=== PATIENT | female | born 1965 | race Caucasian/White ===

== ENCOUNTER → 2018-05-19 08:57 | Outpatient (CLI) | payer OTHER, SELFPAY ==
--- NOTE | 2018-05-19 09:00 | NS.NUTBLAN_ITS ---
Kerry returns for follow up weight management nutrition therapy. She reports she has been on vacation and she states she is proud of herself for having enjoyed her food but not eaten excessively on vacation. She also reports that she walked many miles each day on vacation. Acknowledged Kerry's excellent progress with making eating healthfully a lifetime commitment. Today she is 172.4 lbs which is entirely stable from a month ago. Kerry also notes that her clothes are fitting more loosely so she has likely lost some inches in her waist as well. Kerry will return for follow up in three weeks.
== END ==
PROVIDERS: PCP Family Medicine; Visit Provider Dietitian, Registered
DX: E66.3 Overweight (principal); Z71.3 Dietary counseling and surveillance
CPT/HCPCS: 97803

== ENCOUNTER → 2018-05-30 00:57 | Outpatient (CLI) | payer OTHER, SELFPAY ==
--- NOTE | 2018-05-30 08:40 | DI.REPORT_ITS ---
SYMPTOM/DIAGNOSIS: SCREENING, PREVENTIVE HEALTH CARE Z00.00 BILATERAL SCREENING MAMMOGRAM: Mammograms were interpreted according to the usual protocol including computer analysis with CAD system, tomosynthesis and C view imaging. The breasts are composed of scattered fibroglandular densities. Comparison is made with exams from 2009 through 2017. No suspicious masses or suspicious microcalcifications. There has been no significant change. IMPRESSION: Category 1-B, negative mammogram. Routine screening is recommended. [facility] ASSESSMENT OF FINDINGS: Negative. Category 1. Patient will receive a letter notifying them of these results. BI-RADS category B. There are scattered areas of fibroglandular density.
== END ==
PROVIDERS: PCP Family Medicine; Visit Provider Family Medicine
DX: Z12.31 Encounter for screening mammogram for malignant neoplasm of breast (principal)
CPT/HCPCS: 77063; 77067

== ENCOUNTER → 2018-06-07 03:32 | Outpatient (CLI) | payer OTHER, SELFPAY ==
[2018-06-07 09:46] LABS: Glucose 98 mg/dL (70-100)
[2018-06-08 11:30] LABS: Hepatitis C Ab w Rflx HCV PCR Negative (NEGAT)
== END ==
PROVIDERS: PCP Family Medicine; Visit Provider Family Medicine
DX: Z00.00 Encounter for general adult medical examination without abnormal findings (principal); R73.01 Impaired fasting glucose; G40.209 Localization-related (focal) (partial) symptomatic epilepsy and epileptic syndromes with complex partial seizures, not intractable, without status epilepticus; Z11.59 Encounter for screening for other viral diseases
CPT/HCPCS: 36415; 82947; 86803; 87522

== ENCOUNTER → 2018-06-09 09:03 | Outpatient (CLI) | payer OTHER, SELFPAY ==
--- NOTE | 2018-06-09 09:00 | NS.NUTBLAN_ITS ---
Kerry returns for follow up for nutritional counseling for weight management nutrition therapy. She continues to keep her portions small and she is physically active. She shows me that she has the [facility] Wellness Calendar and that she would like to sign up for aquatic boot camp to further her physical fitness and weight loss. Encouraged her to keep up with exactly what she has been doing and to add on the increased physical activity as she has planned. Her weight is down to 170.4 lbs which is an 11 lb decrease since February of this year. Kerry will return for follow up next month to evaluate her nutrition care plan and we will make any adjustments needed. Appointment start time: End time:
== END ==
PROVIDERS: PCP Family Medicine; Visit Provider Dietitian, Registered
DX: E66.3 Overweight (principal); Z71.3 Dietary counseling and surveillance
CPT/HCPCS: 97803

== ENCOUNTER → 2018-10-27 09:39 | Outpatient (BNVA) | payer OTHER, SELFPAY | PROVIDERS: PCP Nurse Practitioner Family; Visit Provider Psychiatry & Neurology Neurology | DX: G40.209 Localization-related (focal) (partial) symptomatic epilepsy and epileptic syndromes with complex partial seizures, not intractable, without status epilepticus (principal); G43.009 Migraine without aura, not intractable, without status migrainosus | CPT/HCPCS: 99213 ==

== ENCOUNTER 2019-02-20 01:10 | Outpatient (CLI) | payer OTHER, SELFPAY ==
[2019-02-20 07:52] LABS: Hemoglobin A1C 4.5 % (4.5-6.2)
[2019-02-20 08:47] LABS: Anion Gap 10.1 mmol/L (3-11); BUN 16 mg/dL (7-18); CO2 26.9 mmol/L (21.0-32.0); CREATININE 0.92 mg/dL (0.55-1.02); Calcium 9.3 mg/dL (8.5-10.1); Chloride 104 mmol/L (98-107); Cholesterol 215 mg/dL (50-200); Glucose 110 mg/dL (70-100); HDL Cholesterol 53 mg/dL (40-60); LDL CHOLESTEROL 141 mg/dL (<100); Sodium 141 mmol/L (136-145); Triglyceride 99 mg/dL (30-150)
== END 2019-02-20 01:30 ==
PROVIDERS: PCP Nurse Practitioner Family; Visit Provider Nurse Practitioner Family
DX: E78.5 Hyperlipidemia, unspecified (principal); R73.01 Impaired fasting glucose
CPT/HCPCS: 36415; 80048; 80061; 83721; 83036

== ENCOUNTER 2019-03-02 14:00 | Outpatient (REF) | payer OTHER, SELFPAY ==
--- NOTE | 2019-03-02 14:00 | PAPFT_PTH ---
PATIENT: Kerry Hubbard LOC: [facility] U#:[id number] AGE/SX: 53/F ROOM: RE03/02/[address]: Umu Telles APRN : 1965 BED: DIS: 03/02/2019 SPEC #: [id number] RECD: 03/03/19 12:55 STATUS: VENITA REaHi #: [id number] ENRIQUE: 03/02/19 14:[address]: Umu Telles DEPT: [facility] Cytology RECD BY: Sofia Cabrera Tissues: 1 - CX/ENDOCX FOR PAP SMEARS Procedures: PAP THIN PREP/UVM Screening HPV DNA PROBE Comments: [id number]
== END 2019-03-02 14:20 ==
LOC: LBN 14:00
PROVIDERS: PCP Nurse Practitioner Family; Visit Provider Nurse Practitioner Family
DX: Z12.4 Encounter for screening for malignant neoplasm of cervix (principal); Z11.51 Encounter for screening for human papillomavirus (HPV)
CPT/HCPCS: 88142; 87624

== ENCOUNTER → 2020-01-17 08:45 | Outpatient (BNVA) | payer OTHER, SELFPAY | PROVIDERS: PCP Nurse Practitioner Family; Referring Provider Nurse Practitioner Family; Visit Provider Psychiatry & Neurology Neurology | DX: G40.209 Localization-related (focal) (partial) symptomatic epilepsy and epileptic syndromes with complex partial seizures, not intractable, without status epilepticus (principal); G43.009 Migraine without aura, not intractable, without status migrainosus | CPT/HCPCS: 99213; 99441 ==

== ENCOUNTER 2020-04-01 01:25 | Outpatient (CLI) | payer OTHER, SELFPAY ==
[2020-04-01 09:04] LABS: Anion Gap 9.9 mmol/L (3-11); BUN 17 mg/dL (7-18); CO2 26.1 mmol/L (21.0-32.0); CREATININE 0.85 mg/dL (0.55-1.02); Calcium 9.1 mg/dL (8.5-10.1); Chloride 105 mmol/L (98-107); Glucose 105 mg/dL (74-106); Potassium 4.3 mmol/L (3.5-5.1); Sodium 141 mmol/L (136-145)
[2020-04-03 10:14] LABS: HIV-1/2 Ag & Ab Screen Negative (Negative)
== END 2020-04-01 01:45 ==
PROVIDERS: PCP Nurse Practitioner Family; Visit Provider Nurse Practitioner Family
DX: E78.5 Hyperlipidemia, unspecified (principal); R73.01 Impaired fasting glucose; Z11.4 Encounter for screening for human immunodeficiency virus [HIV]; Z51.81 Encounter for therapeutic drug level monitoring
CPT/HCPCS: 36415; 80048; 87389

== ENCOUNTER 2020-05-13 01:17 | Outpatient (CLI) | payer OTHER, SELFPAY ==
--- NOTE | 2020-05-13 07:45 | DI.MAMMO_ITS ---
EXAM: MG MAMMO SCREENING CLINICAL HISTORY: screening,Z12.39 TECHNIQUE: Mammograms were interpreted according to the usual protocol including computer analysis w [employer] CAD system, tomosynthesis and C-view imaging. COMPARISON: FINDINGS: The breasts are of moderate density with fairly symmetrical distribution of fibroglandular tissue. N o dominant mass or clumped microcalcification is identified in either breast. The current examinatio n is compared with previous examinations including May 2018 and there has been no gross interval c hange in appearance in comparison with the prior studies. IMPRESSION: No specific evidence of malignancy at this time. Routine screening examinations are suggested at yea rly intervals in this age group according to the ACS ACR guidelines. BI-RADS Cat 1 - Negative Breast Density - Category B - Scattered areas of fibroglandular density
== END 2020-05-13 01:37 ==
PROVIDERS: PCP Nurse Practitioner Family; Visit Provider Nurse Practitioner Family
DX: Z12.31 Encounter for screening mammogram for malignant neoplasm of breast (principal); R92.2 Inconclusive mammogram
CPT/HCPCS: 77063; 77067

== ENCOUNTER 2021-08-28 07:29 | Emergency (ER) | payer MEDICARE, SELFPAY ==
[2021-08-28 07:37] VITALS: BP 123/82; PULSE 92; RESP 18; TEMP 36.8; O2SAT 100
[2021-08-28] MEDS: diphenhydrAMINE 25 MG CAP 50 MG PO (08:05)
--- NOTE | 2021-08-28 08:21 | ED.GENADUL_ITS ---
Discharge Plan Disposition Patient Disposition: HOME Condition: Stable Discharge Details Clinical Impression: Amoxicillin-induced allergic rash Primary Care Provider: Umu Telles ED Provider: Quentin Melchor Home Meds and New Rx's Prescriptions: New diphenhydramine HCl [Benadryl Allergy] 25 mg tablet 50 mg PO TID PRN (Reason: allergic reaction) 4 Days RF: 0 prednisone 20 mg tablet 40 mg PO DAILY Qty: 10 RF: 0 Continued multivitamin tablet 1 tab PO DAILY RF: 0 acetaminophen [Tylenol Extra Strength] 500 MG tablet 500 mg PO PRN RF: 0 topiramate [Topamax] 50 mg tablet 50 mg PO BID Qty: 180 RF: 3 Discontinued amoxicillin-pot clavulanate [Augmentin] 875-125 mg tablet 1 tab PO Q12H Qty: 14 RF: 0 Discharge Instructions Instructions: Antibiotic Medication Allergy (ED) Additional Instructions: Please take Benadryl 50 mg every 8 hours for the next 3 to 5 days as needed for itchy rash. Take prednisone as prescribed if symptoms do not respond to Benadryl. Please contact your primary care physician to arrange follow-up. Return to the ER immediately for any worsening or new concerning symptoms. Referrals: Umu Telles, LOVELY [Primary Care Provider] - Medical Decision Making 56-year-old female here with urticarial rash while taking Augmentin prophylactically for dog bite. Suspect allergic reaction to amoxicillin. No airway involvement. Hemodynamically stable. She has completed full course of Augmentin. Patient be treated with Benadryl. I also suggested prednisone and patient provided informed refusal at this time. She is agreeable to taking prescription should Benadryl not improve symptoms. Usual customary discharge instructions reviewed with the patient. HPI General Mode of arrival: ambulatory . Date/Time Provider Initiated Documentation: 08/28/21 08:12 . Limitations to Documentation: no limitations . Information obtained by: patient . HPI Narrative: 56-year-old female presents with chief complaint of rash. Rash is itchy and severe. No modifiers. Rash is localized to diffuse body. Patient had friends pet dog bite her left arm, she was started on prophylactic Augmentin on 08/21/2021. She developed rash on 08/25/2021. She has continued to take Augmentin. Related Data Home Medications Medication Instructions Recorded Confirmed acetaminophen [Tylenol Extra 500 mg PO PRN tab-cap 12/24/14 08/28/21 Strength] multivitamin 1 tab PO DAILY 08/18/18 08/28/21 topiramate 50 mg tablet 50 mg PO BID #180 tab-cap 09/02/20 08/28/21 diphenhydramine HCl [Benadryl 50 mg PO TID PRN 4 Days tab 08/28/21 Allergy] prednisone 40 mg PO DAILY #10 tab 08/28/21 Previous Rx's Medication Instructions Recorded topiramate 50 mg tablet 50 mg PO BID #180 tab-cap 09/02/20 diphenhydramine HCl [Benadryl 50 mg PO TID PRN 4 Days tab 08/28/21 Allergy] prednisone 40 mg PO DAILY #10 tab 08/28/21 Allergies Allergy/AdvReac Type Severity Reaction Status Date / Time lactose Allergy Unknown Verified 08/28/21 07:45 amoxicillin [From Augmentin] Allergy Skin Rash Unverified 08/28/21 08:06 clavulanic acid Allergy Skin Rash Unverified 08/28/21 08:06 [From Augmentin] General Stated Complaint: Allergic BRENT: 3 Review of Systems All systems reviewed & are unremarkable except as noted in HPI and below Constitutional Constitutional: Denies fever(s) Integumentary/Breasts Skin/Breast: Reports as per HPI PFSH Active Problem List Amoxicillin-induced allergic rash (Acute) Overweight (BMI 25.0-29.9) (Chronic) Hyperlipidemia, unspecified (Chronic) Cognitive developmental delay (Chronic) Complex partial seizures (Chronic) Migraine without aura and without status migrainosus, not intractable (Chronic 10/28/17) Medical History IFG (impaired fasting glucose) Surgical History History of fracture of clavicle S/p surgical repair S/P ACL repair (~05/11/09) (L) Family History Mother , Age 83 2/2 cirrhosis (hepatitis C) Hypertension Father Hypertension Hyperlipidemia Dementia Sister , Age 40 2/2 cirrhosis (EtOH) Alcohol abuse Sister No problems noted. 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) Pets and animals: Yes Pets and animals: cat(s) Sexually active: No Do you think of yourself as: straight/heterosexual Current gender identity: female Other: not currently sexually active, active with male in the past What is your relationship status?: never How often do you talk on the phone with friends or family?: three or more times per week How often do you get together with friends or relatives?: once per week Do you belong to any clubs or organized social groups?: yes Panel score (0-1 are the most socially isolated patients): 2 What type of physical activity do you participate in: walking Duration: 15-30 minutes/day Frequency: 5-6 times per week Annelise/Rastafarian: Mandaeism Special annelise needs: No Seatbelt use: always Drive intox or ride w/intox chuck wagon driver: No Water heater temp set <120 deg: Yes Working smoke detector in home: No Fire extinguisher in home: No Carbon monox detector in home: No Firearms in home: No Do you feel safe at home: Yes Do you feel safe in your relationship?: Yes Female Reproductive History Menstrual Menopause type: natural (LMP ~45 y/o) History History 0 Para Hx # Term Pregnancies Multiple births Hx # Pregnancies Ectopic pregnancies AB induced Hx Number of Living Children AB spontaneous Exam Const General: cooperative Orientation: alert and awake HENMT Mouth: moist mucous membranes Throat: posterior oropharynx normal Resp Effort & Inspection: normal respiratory effort and able to speak in complete sentences Auscultation: clear to auscultation bilaterally Cardio Rate: regular rate Rhythm: regular rhythm Heart Sounds: S1 normal and S2 normal Skin Rashes: rashes noted (Full body urticarial rash) Wounds: wounds noted (2cm bite lt forearm healing, no signs infection) Course Vital Signs Vital signs: Vital Signs Temperature 36.8 C 08/28/21 07:37 Pulse 92 H 08/28/21 07:37 Respiratory Rate 18 08/28/21 07:37 Blood Pressure 123/82 08/28/21 07:37 Pulse Oximetry 100 08/28/21 07:37 Temperature 36.8 C 08/28/21 07:37 Temperature Source Temporal Artery Scan 08/28/21 07:37 Pulse 92 H 08/28/21 07:37 Respiratory Rate 18 08/28/21 07:37 Respiratory Effort Non-Labored 08/28/21 07:46 Respiratory Pattern Normal 08/28/21 07:46 Blood Pressure 123/82 08/28/21 07:37 Blood Pressure Position Sitting 08/28/21 07:37 Pulse Oximetry 100 08/28/21 07:37 Oxygen Delivery Method Room Air 08/28/21 07:37 Oxygen Flow Rate 0 08/28/21 07:37 Pain Level 4 08/28/21 07:37
== END 2021-08-28 08:30 | disposition home or self-care (01) ==
PROVIDERS: Emergency Provider Student in an Organized Health Care Education/Training Program; PCP Nurse Practitioner Family
DX: L27.1 Localized skin eruption due to drugs and medicaments taken internally (principal); T36.0X5A Adverse effect of penicillins, initial encounter
CPT/HCPCS: 99283

== ENCOUNTER → 2022-01-13 08:12 | Outpatient (BNVA) | payer MEDICARE, SELFPAY | PROVIDERS: PCP Nurse Practitioner Family; Referring Provider Nurse Practitioner Family; Visit Provider Psychiatry & Neurology Neurology | DX: G40.209 Localization-related (focal) (partial) symptomatic epilepsy and epileptic syndromes with complex partial seizures, not intractable, without status epilepticus (principal); G43.009 Migraine without aura, not intractable, without status migrainosus | CPT/HCPCS: 99213 ==

== ENCOUNTER → 2023-01-14 10:28 | Outpatient (BNVA) | payer MEDICARE, SELFPAY | PROVIDERS: PCP Nurse Practitioner Family; Visit Provider Psychiatry & Neurology Neurology | DX: G40.209 Localization-related (focal) (partial) symptomatic epilepsy and epileptic syndromes with complex partial seizures, not intractable, without status epilepticus (principal); G43.009 Migraine without aura, not intractable, without status migrainosus | CPT/HCPCS: 99213 ==

== ENCOUNTER → 2024-01-13 09:32 | Outpatient (BNVA) | payer MEDICARE, SELFPAY | PROVIDERS: PCP Nurse Practitioner Adult Health; Referring Provider Nurse Practitioner Adult Health; Visit Provider Psychiatry & Neurology Neurology | DX: G40.209 Localization-related (focal) (partial) symptomatic epilepsy and epileptic syndromes with complex partial seizures, not intractable, without status epilepticus (principal); G43.009 Migraine without aura, not intractable, without status migrainosus | CPT/HCPCS: 99213 ==

== ENCOUNTER 2024-01-18 04:43 | Outpatient (CLI) | payer MEDICARE, SELFPAY ==
[2024-01-18 08:57] LABS: Anion Gap 10.9 mmol/L (3-11); BUN 12 mg/dL (7-18); CO2 26.1 mmol/L (21.0-32.0); CREATININE 0.9 mg/dL (0.55-1.02); Calcium 9.5 mg/dL (8.5-10.1); Calculated LDL 133 mg/dL (<100); Chloride 106 mmol/L (98-107); Cholesterol 230 mg/dL (<200); Glucose 112 mg/dL (74-106); HDL Cholesterol 59 mg/dL (40-60); Sodium 143 mmol/L (136-145); Triglyceride 194 mg/dL (<150)
[2024-01-20 14:41] LABS: IgA 216 mg/dL (85-499); Interpretation (See Note); Tissue Transglutaminase IgA 8.3 CU (<20.0)
== END 2024-01-18 04:44 | disposition home or self-care (01) ==
LOC: LBO 04:43
PROVIDERS: Absent Provider Nurse Practitioner Adult Health; PCP Nurse Practitioner Adult Health; Visit Provider Nurse Practitioner Adult Health
DX: E78.5 Hyperlipidemia, unspecified (principal); Z13.1 Encounter for screening for diabetes mellitus; R19.4 Change in bowel habit
CPT/HCPCS: 36415; 80048; 80061; 82784; 83516

== ENCOUNTER 2024-03-18 09:14 | Emergency (ER) | payer MEDICARE, SELFPAY ==
[2024-03-18 09:24] VITALS: BP 132/65; PULSE 70; RESP 14; TEMP 36.7; O2SAT 99
--- NOTE | 2024-03-18 10:31 | NUR.NOTE ---
Referral [facility]ed [facility] isidra rectal abscess, for WednesdayMarch 20. Nursing Note:
[2024-03-18 10:32] VITALS: BP 132/65; PULSE 70; RESP 14; RESP 15; TEMP 36.7; O2SAT 99
--- NOTE | 2024-03-18 14:46 | ED.GENADUL_ITS ---
Discharge Plan Disposition Patient Disposition: Home Discharge Details Clinical Impression: Abscess, perirectal Primary Care Provider: [facility] ED Provider: Sofia Augustin Home Meds and New Rx's Prescriptions: New ciprofloxacin HCl 500 mg tablet 500 mg PO Q12H Qty: 20 0RF metronidazole 500 mg tablet 500 mg PO BID 10 Days Qty: 20 0RF Continued multivitamin tablet 1 tab PO DAILY dicyclomine 10 mg capsule 10 mg PO BID PRN (Reason: abdominal pain) Qty: 20 0RF Rx Instructions: Medication trial for abd pain & spasm associated with ?IBS ibuprofen 200 mg capsule 400 mg PO Q6H PRN acetaminophen [Tylenol Extra Strength] 500 MG tablet 500 mg PO PRN topiramate 50 mg tablet See Rx Instructions .ROUTE .COMPLEX Qty: 180 3RF Dose Instruction: TAKE 1 TABLET BY MOUTH TWICE DAILY Rx Instructions: TAKE 1 TABLET BY MOUTH TWICE DAILY Discharge Instructions Instructions: Abscess (ED) Additional Instructions: Take antibiotic as prescribed, yogurt with live active cultures daily while on the antibiotic Sitz bath's twice a day for 10 minutes Follow-up with surgery on Wednesday for reassessment Moist warm heat will help this continue to drain and you may use a sanitary pad to cover area in your underpants Referrals: [facility], CERNER ANALYST [Primary Care Provider] - 1 day Discharge Data Discharge Date/Time-TO BE ENTERED AT DEPARTURE: 03/18/24 10:50 HPI General Date/Time Provider Initiated Documentation: 03/18/24 09:23 . HPI Narrative: This 58-year-old female presents with concern for perirectal abscess which started on with some pain with subsequent drainage on Wednesday. States that she has not had fever or chills denies any abdominal pain. Denies any discomfort with bowel movements. States the pain is exacerbated with sitting and palpation. Denies history of similar complaints in the past. Related Data Home Medications Medication Instructions Recorded Confirmed acetaminophen 500 mg tablet 500 mg PO PRN 12/24/14 03/18/24 (Tylenol Extra Strength) multivitamin 1 tab PO DAILY 08/18/18 03/18/24 ibuprofen 200 mg capsule 400 mg PO Q6H PRN 01/14/23 03/18/24 dicyclomine 10 mg capsule 10 mg PO BID PRN abdominal pain 09/08/23 03/18/24 #20 caps topiramate 50 mg tablet See Rx Instructions .Route 10/14/23 03/18/24 .COMPLEX #180 tabs ciprofloxacin HCl 500 mg tablet 500 mg PO Q12H #20 tabs 03/18/24 metronidazole 500 mg tablet 500 mg PO BID 10 days #20 tabs 03/18/24 Previous Rx's Medication Instructions Recorded dicyclomine 10 mg capsule 10 mg PO BID PRN abdominal pain 09/08/23 #20 caps topiramate 50 mg tablet See Rx Instructions .Route 10/14/23 .COMPLEX #180 tabs ciprofloxacin HCl 500 mg tablet 500 mg PO Q12H #20 tabs 03/18/24 metronidazole 500 mg tablet 500 mg PO BID 10 days #20 tabs 03/18/24 Allergies Allergy/AdvReac Type Severity Reaction Status Date / Time Penicillins Allergy Severe Skin Rash Verified 03/18/24 09:31 lactose Allergy Unknown Other (See Verified 03/18/24 09:31 Comment) amoxicillin [From Augmentin] Allergy Skin Rash Unverified 03/18/24 09:31 clavulanic acid Allergy Skin Rash Unverified 03/18/24 09:31 [From Augmentin] General Stated Complaint: GenMedical BRENT: 3 Exam Narrative Exam Narrative: Perirectal abscess at the 5 o'clock position noted, draining purulent material, no tenderness with rectal exam, no abdominal tenderness, no cellulitis or lymphangitis Course Vital Signs Vital signs: Vital Signs Temperature 36.7 C 03/18/24 09:24 Pulse 70 03/18/24 09:24 Respiratory Rate 14 03/18/24 09:24 Blood Pressure 132/65 03/18/24 09:24 Pulse Oximetry 99 03/18/24 09:24 Temperature 36.7 C 03/18/24 10:32 Temperature Source Skin 03/18/24 10:32 Pulse 70 03/18/24 10:32 Respiratory Rate 15 03/18/24 10:32 Respiratory Effort Normal 03/18/24 10:32 Respiratory Depth Normal 03/18/24 10:32 Respiratory Pattern Normal 03/18/24 10:32 Blood Pressure 132/65 03/18/24 10:32 Blood Pressure Position Standing 03/18/24 10:32 Pulse Oximetry 99 03/18/24 10:32 Oxygen Delivery Method Room Air 03/18/24 10:32 Oxygen Flow Rate 0 03/18/24 09:24 Pain Level 10 03/18/24 10:32 Lab/Test Results Lab/Test Results: 03/18/24 10:30 Coccyx Wound Culture - Pending 03/18/24 10:30 Coccyx Gram Stain - Final Medical Decision Making 58-year-old female presenting with abscess to the perirectal region, draining, a small incision was made with copious drainage, Cipro Flagyl secondary to penicillin allergy was supplied, rectal tone was intact pre and postprocedure. Case was discussed with Dr. Zuniga, general surgery recommends antibiotic. Cipro and Flagyl were supplied. Patient will continue with supportive therapy, ibuprofen and Tylenol, and will be placed on surgical list for follow-up on Wednesday, wound was probed and low suspicion for fistula clinically. Patient is nontoxic in appearance. Recheck in 48 hours recommended sitz bath's 10 minutes twice a day recommended. Quality:SDOH Health Related Social Needs: No Data to Display PFSH All Active Problems (Updated 03/18/24 @ 10:33 by AYDIN Viera) Abscess, perirectal (Acute) IFG (impaired fasting glucose) (Chronic ~2017) Altered bowel habits (Acute ~2022) Amoxicillin-induced allergic rash (Acute) Overweight (BMI 25.0-29.9) (Chronic) Hyperlipidemia, unspecified (Chronic) 02/2019 labs: 10-year ASCVD risk = ~2% Cognitive developmental delay (Chronic) Complex partial seizures (Chronic) Followed by Neuro; hasn't had a seizure since 2014 Migraine without aura and without status migrainosus, not intractable (Chronic 10/28/17) Medical History IFG (impaired fasting glucose) Surgical History History of fracture of clavicle S/p surgical repair S/P ACL repair (~05/11/09) (L) Family History Mother , Age 83 2/2 cirrhosis (hepatitis C) Hypertension Father Hypertension Hyperlipidemia Dementia Sister , Age 40 2/2 cirrhosis (EtOH) Alcohol abuse Sister No problems noted. 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) Pets and animals: Yes Pets and animals: cat(s) Sexually active: No Do you think of yourself as: straight/heterosexual Current gender identity: female Other: not currently sexually active, active with male in the past What is your relationship status?: never How often do you talk on the phone with friends or family?: three or more times per week How often do you get together with friends or relatives?: once per week Do you belong to any clubs or organized social groups?: yes Panel score (0-1 are the most socially isolated patients): 2 What type of physical activity do you participate in: walking Duration: 15-30 minutes/day Frequency: 5-6 times per week Annelise/Yazidism: Restorationism Special annelise needs: No Seatbelt use: always Drive intox or ride w/intox speedboat driver: No Water heater temp set <120 deg: Yes Working smoke detector in home: No Fire extinguisher in home: No Carbon monox detector in home: No Firearms in home: No Do you feel safe at home: Yes Do you feel safe in your relationship?: Yes Female Reproductive History Menstrual Menopause type: natural (LMP ~45 y/o) History History 0 Para Hx # Term Pregnancies Multiple births Hx # Pregnancies Ectopic pregnancies AB induced Hx Number of Living Children AB spontaneous PAWSS Have you Been Recently Intoxicated or Drunk Within the Last 30 days?: No Have you Ever Experienced Previous Episodes of Alcohol Withdrawal?: No Have you ever Experienced Withdrawal Seizures?: No Have you ever Experienced Delirium Tremens(DT)s?: No Have you ever undergone Alcohol Rehabilitation Treatment (i.e, inpt ot outpatient treatment programs)?: No Have you ever Experienced Blackouts?: No Have you ever Combined Alcohol with other Downers within the last 90 days?: No Have you ever Combined Alcohol with any other Substance of Abuse during the last 90 days?: No Positive Blood Alcohol level on Presentation? [PCS.BAL]: No Evidence of Increased Autonomic Activity (i.e. HR>120, tremor, sweating, agitation, nausea)?: No Result: 0
== END 2024-03-18 10:50 | disposition home or self-care (01) ==
PROVIDERS: Emergency Provider Physician Assistant; PCP Nurse Practitioner Adult Health
DX: K61.1 Rectal abscess (principal)
CPT/HCPCS: 82962; 99283; 87070; 87205

== ENCOUNTER → 2024-03-27 07:51 | Outpatient (BNVA) | payer MEDICARE, SELFPAY | PROVIDERS: PCP Nurse Practitioner Adult Health; Referring Provider Nurse Practitioner Adult Health; Visit Provider Physical Therapy Assistant | DX: K61.1 Rectal abscess (principal) | CPT/HCPCS: 99213 ==

== ENCOUNTER 2025-01-15 09:42 | Outpatient (REF) | payer MEDICARE, SELFPAY ==
--- NOTE | 2025-01-15 09:00 | PAPFT_PTH ---
PATIENT: Kerry Hubbard LOC: [facility] U#:[id number] AGE/SX: 59/F ROOM: RE01/15/[address]: Magaly Heart APRN : 1965 BED: DIS: 01/15/2025 SPEC #: [id number] RECD: 01/15/25 17:04 STATUS: VENITA REQ #: [id number] ENRIQUE: 01/15/25 09:[address]: Magaly Heart DEPT: [facility] Cytology RECD BY: Sofia Cabrera Tissues: 1 - CX/ENDOCX FOR PAP SMEARS Procedures: PAP THIN PREP/UVM Screening HPV DNA PROBE Comments: [id number] (HPV 16 & 18/45)
== END 2025-01-15 09:43 | disposition home or self-care (01) ==
LOC: LBN 09:42
PROVIDERS: PCP Nurse Practitioner Adult Health; Referring Provider Nurse Practitioner Adult Health; Visit Provider Nurse Practitioner Adult Health
DX: Z12.4 Encounter for screening for malignant neoplasm of cervix (principal)
CPT/HCPCS: 88142; 87624

== ENCOUNTER 2025-01-17 00:57 | Outpatient (CLI) | payer MEDICARE, SELFPAY ==
--- NOTE | 2025-01-17 07:45 | DI.US_ITS ---
Exam(s) US THYROID EXAM: US THYROID CLINICAL HISTORY: Evaluate thyroid enlargement,thyromegaly,e01.0. TECHNIQUE: Ultrasound thyroid performed using standard protocol. COMPARISON: No exams were available for comparison FINDINGS: ISTHMUS: 1.9 mm RIGHT LOBE: Size: 5.6 x 2.0 x 2.4 cm Echogenicity: There is diffuse heterogeneous echogenicity of the right lobe of the thyroid gland. Vascularity: Question of mild increased blood flow. Nodules: None. LEFT LOBE: Size: 5.4 x 2.2 x 2.4 cm Echogenicity: There is diffuse heterogeneous echogenicity of the left lobe of the thyroid gland. Vascularity: Question of mild increased blood flow. Nodules: None. OTHER FINDINGS: None. IMPRESSION: Diffuse heterogeneity of the thyroid gland suspicious for diffuse thyroid disease/thyroiditis. Pleas e correlate with the patient's laboratory results. No discrete thyroid nodule is identified. DATA REPOSITORY:
== END 2025-01-17 01:17 ==
LOC: DI 00:57
PROVIDERS: PCP Nurse Practitioner Adult Health; Visit Provider Nurse Practitioner Adult Health
DX: E01.0 Iodine-deficiency related diffuse (endemic) goiter (principal)
CPT/HCPCS: 76536

== ENCOUNTER 2025-01-22 03:14 | Outpatient (CLI) | payer MEDICARE, SELFPAY ==
[2025-01-22 08:40] LABS: ESR 13 mm/hr (0-30)
[2025-01-22 09:41] LABS: Hemoglobin A1C 5.7 % (<5.7)
[2025-01-22 09:50] LABS: ALT 22 U/L (14-59); AST 14 U/L (15-37); Albumin 3.5 g/dL (3.4-5.0); Alkaline Phosphatase 95 U/L (46-116); Anion Gap 5.6 mmol/L (3-11); BUN 15 mg/dL (7-18); Bilirubin, Total 0.3 mg/dL (0.2-1.0); CO2 28.4 mmol/L (21.0-32.0); Calculated LDL 90 mg/dL (<100); Chloride 109 mmol/L (98-107); Cholesterol 174 mg/dL (<200); Glucose 105 mg/dL (74-106); HDL Cholesterol 61 mg/dL (>or=50); Potassium 4.2 mmol/L (3.5-5.1); Sodium 143 mmol/L (136-145); TSH (W/Ref FT4) 1.56 uIU/mL (0.36-3.74); Total Protein 7.1 g/dL (6.4-8.2); Triglyceride 115 mg/dL (<150)
[2025-01-22 10:10] LABS: FREE T4 0.83 ng/dL (0.76-1.46)
[2025-01-22 18:00] LABS: T3, Total 114 ng/dL (97-169)
[2025-01-22 19:49] LABS: Thyroglobulin Antibody <15 U/mL (<=60); Thyroperoxidase Antibody 803 U/mL (<=60)
[2025-01-24 19:42] LABS: Thyroglobulin Antibody <1.8 IU/mL (<1.8); Thyroglobulin Tumor Marker 61 ng/mL (< or = 33)
== END 2025-01-22 03:15 | disposition home or self-care (01) ==
PROVIDERS: Absent Provider Nurse Practitioner Adult Health; PCP Nurse Practitioner Adult Health; Referring Provider Nurse Practitioner Adult Health; Visit Provider Nurse Practitioner Adult Health
DX: R73.01 Impaired fasting glucose (principal); Z00.00 Encounter for general adult medical examination without abnormal findings; E06.9 Thyroiditis, unspecified; E01.0 Iodine-deficiency related diffuse (endemic) goiter; E78.5 Hyperlipidemia, unspecified
CPT/HCPCS: 36415; 80053; 80061; 85652; 86376; 83036; 84432; 84439; 84443; 84480; 86800

== ENCOUNTER → 2025-01-23 15:04 | Outpatient (BNVA) | payer MEDICARE, SELFPAY | PROVIDERS: PCP Nurse Practitioner Adult Health; Visit Provider Psychiatry & Neurology Neurology | DX: G40.209 Localization-related (focal) (partial) symptomatic epilepsy and epileptic syndromes with complex partial seizures, not intractable, without status epilepticus (principal); G43.009 Migraine without aura, not intractable, without status migrainosus | CPT/HCPCS: 99213 ==

== ENCOUNTER 2025-02-19 02:46 | Outpatient (CLI) | payer MEDICARE, SELFPAY ==
--- NOTE | 2025-02-19 06:30 | DI.MAMMO_ITS ---
Exam(s) MAMMO SCREENING EXAM: MAMMO SCREENING CLINICAL HISTORY: screening,z12.39 TECHNIQUE: Bilateral full field digital CC and MLO mammographic images were obtained with 3D tomosyn thesis and utilizing computer aided detection (CAD). COMPARISON: Available for comparison. FINDINGS: Masses/Architectural Distortion: No suspicious masses or areas of architectural distortion are presen t. Microcalcifications: No suspicious pleomorphic-type are seen. Skin Thickening/Nipple Retraction: None. IMPRESSION: 1. No significant interval change with no specific features of malignancy noted. 2. Unless there is more urgent need, screening mammography is recommended, as per [place] [employer] guidelines. BI-RADS Category 1 - Negative Breast Density - Category B - There are scattered areas of fibroglandular density. Breast density category C or D implies that the patient has dense breast tissue. Dense breast tissue is very common and is not abnormal but dense breast tissue can make it harder to find cancer on a ma mmogram. Also, dense breast tissue may increase their breast cancer risk. This information about the result of the mammogram report was provided to the patient to raise their awareness. Use this report when you speak with the patient about their risks for breast cancer, which includes their family hist ory. At that time, you may recommend for more screening tests (Ultrasound or MRI) as they might be us eful based on their risk. A negative radiographic report should not delay biopsy if a dominant or clinically suspicious mass is present. Up to ten percent of cancers are not identified on mammography. A negative report may reinforce clinical impression. Adenosis and dense breasts may obscure an underlying neoplasm. False positive reports average 6 to 10%. Patient will receive a letter notifying them of these results.
== END 2025-02-19 03:06 ==
LOC: DI 02:46
PROVIDERS: PCP Nurse Practitioner Adult Health; Visit Provider Nurse Practitioner Adult Health
DX: Z12.31 Encounter for screening mammogram for malignant neoplasm of breast (principal); R92.323 Mammographic fibroglandular density, bilateral breasts
CPT/HCPCS: 77063; 77067

== ENCOUNTER 2025-09-21 01:33 | Outpatient (CLI) | payer MEDICARE, SELFPAY ==
[2025-09-21 08:26] LABS: Hemoglobin A1C 5.5 % (<5.7)
[2025-09-21 09:14] LABS: TSH 1.22 uIU/mL (0.55-4.78)
[2025-09-21 09:16] LABS: Anion Gap 8.7 mmol/L (3-11); BUN 16 mg/dL (9-23); CO2 27.3 mmol/L (20.0-31.0); Calcium 9.4 mg/dL (8.3-10.6); Chloride 106 mmol/L (98-107); Cholesterol 201 mg/dL (<200); Glucose 102 mg/dL (74-106); HDL Cholesterol 58 mg/dL (>40); Potassium 4.3 mmol/L (3.5-5.1); Sodium 142 mmol/L (136-145)
== END 2025-09-21 01:34 | disposition home or self-care (01) ==
LOC: LBO 01:33
PROVIDERS: PCP Nurse Practitioner Adult Health; Referring Provider Nurse Practitioner Adult Health; Visit Provider Nurse Practitioner Adult Health
DX: E06.3 Autoimmune thyroiditis (principal); Z80.8 Family history of malignant neoplasm of other organs or systems; L60.3 Nail dystrophy; Z51.81 Encounter for therapeutic drug level monitoring; R73.01 Impaired fasting glucose; E78.5 Hyperlipidemia, unspecified
CPT/HCPCS: 36415; 80048; 80061; 83036; 84439; 84443